=== PATIENT | female | born 1985 | race Hispanic/Latino ===

== ENCOUNTER 2019-02-05 21:07 | Emergency (ER) | payer OTHER ==
[~2019-02-05] VITALS: Ht 162.6 cm; Wt 77.1 kg
[2019-02-05 21:07] VITALS: BP 126/76
--- NOTE | 2019-02-05 21:38 | PCM.EKG ---
[facility] Test Date: 2019-02-05 Test Time: 21:29:41 Pat Name: BE SALAZAR Department: Room: Gender: F Cafe Associate: HOLDEN : 1985 Requested By: DEBORA FAIRCHILD Order Number: [id number] Reading MD: Measurements Intervals [place] Rate: 77 P: 46 NE: 146 QRS: -23 QRSD: 100 T: 43 QT: 390 QTc: 441 Interpretive Statements Normal sinus rhythm Normal ECG No previous ECG available for comparison Please click the below link to view image of tracing.
[2019-02-05 22:18] VITALS: BP 126/76
--- NOTE | 2019-02-05 23:54 | DIREP ---
PROCEDURE:CHEST 1 VIEW COMPARISON:None. INDICATIONS:cp FINDINGS: LUNGS/PLEURA:No significant pulmonary parenchymal abnormalities. No effusions. VASCULATURE:Normal. Unremarkable pulmonary vasculature. CARDIAC:Normal. No cardiac silhouette abnormality or cardiomegaly. MEDIASTINUM:Normal. No visible mass or adenopathy. BONES:Normal. No fracture or visible bony lesion. OTHER:Negative. CONCLUSION:Normal examination. Dictated by: Juan Moy M.D. on 02/05/2019 at 11:52 PM
[2019-02-06] LABS: BASOPHIL # 0.1 10^3/uL (0.0-0.1); BASOPHIL % 0.6 % (0.0-0.2); EOSINOPHIL # 0.5 10^3/uL (0.0-0.2); HEMOGLOBIN 13.4 g/dL (12.0-15.0); LYMPHOCYTES # 4.2 10^3/uL (1.0-4.8); LYMPHOCYTES % 31.7 % (24.0-44.0); MEAN CELL HGB 30.8 pg (26-34); MEAN CELL HGB CONCENTRATION 34.5 g/dL (33-37); MEAN CORP VOLUME 89.2 fL (78-100); MEAN PLATELET VOLUME 9.3 fL (7.8-11.0); MONOCYTES % 7.3 % (5.0-12.0); NEUTROPHIL # 7.4 10^3/uL (1.8-7.7); NEUTROPHILS % 56.2 % (41.0-85.0); RED CELL DISTRIBUTION WIDTH 12.4 % (11.5-14.5); WHITE BLOOD CELL 13.2 10^3/uL (4.5-11.0)
--- NOTE | 2019-02-06 00:05 | ER.PDOC ---
General Chief Complaint: Nausea,Vomiting,Diarrhea Stated Complaint: NAUSEA,CHEST PRESSURE Time seen by MD: 00:05 Source: patient Exam Limitations: no limitations History of Present Illness Timing/Duration: 4-6 hours Severity/Quality: moderate, dull, pressure Radiation: no radiation Activities at Onset: none Prior CP/Workup: No Prior Chest Pain Nitro Today/Relief: No Nitro Taken Today Aspirin Today: No Aspirin Today Associated Symptoms: denies symptoms Past Medical History Medical History: no pertinent history Surgical History: appendectomy, cholecystectomy, LMP (females 10-50): last week Social History Smoking: less than 1 pack/day Alcohol Use: occassionally Drug Use: none Constitutional: denies no symptoms reported, denies see HPI, denies chills, denies diaphoresis, denies fever, denies malaise, denies weakness, denies other EENTM: denies no symptoms reported, denies see HPI, denies eye pain, denies blurred vision, denies tearing, denies double vision, denies ear pain, denies ear discharge, denies nose pain, denies nose congestion, denies throat pain, denies throat swelling, denies mouth pain, denies mouth swelling, denies other Respiratory: denies no symptoms reported, denies see HPI, denies cough, denies orthopnea, denies shortness of breath, denies SOB with exertion, denies SOB at rest, denies stridor, denies wheezing, denies other Gastrointestinal: denies no symptoms reported, denies see HPI, denies abdomen distended, denies abdominal pain, denies blood streaked bowels, denies constipated, denies diarrhea, denies difficulty swallowing, denies nausea, denies poor appetite, denies poor fluid intake, denies rectal bleeding, denies vomiting, denies other Genitourinary: denies no symptoms reported, denies see HPI, denies burning, denies dysuria, denies discharge, denies frequency, denies flank pain, denies hematuria, denies incontinence, denies pain, denies urgency, denies other Musculoskeletal: denies no symptoms reported, denies see HPI, denies back pain, denies gout, denies joint pain, denies joint swelling, denies muscle pain, denies muscle stiffness, denies neck pain, denies other Skin: denies no symptoms reported, denies see HPI, denies change in color, denies change in hair/nails, denies dryness, denies lesions, denies lumps, denies rash, denies other Physical Exam General Appearance: No Apparent Distress, WD/WN HEENT: PERRL/EOMI, Normal ENT Inspection, TMs Normal, Pharynx Normal Neck: Non-Tender, Full Range of Motion, Supple, Normal Inspection Respiratory: chest non-tender, lungs clear, normal breath sounds, no respiratory distress, no accessory muscle use Cardiovascular: Normal Peripheral Pulses, Regular Rate, Rhythm, No Edema, No Gallop, No JVD, No Murmur Gastrointestinal: Normal Bowel Sounds, No Organomegaly, No Pulsatile Mass, Non Tender, Soft Extremities: Normal Range of Motion, Non-Tender, Normal Inspection, No Pedal Edema, No Calf Tenderness, Normal Capillary Refill 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 (02/05/19 23:37) Helicobacter Pylori (02/05/19 23:37) D-Dimer (02/05/19 23:37) Xr Chest 1v (02/05/19 23:37) Vital Signs Date Time Temp Pulse Resp B/P (MAP) Pulse Ox O2 Delivery O2 Flow Rate FiO2 02/05/19 22:18 98.2 75 16 126/76 (93) 100 Room Air 02/05/19 21:07 98.4 75 16 126/76 (93) 02/05/19 21:07 98.4 75 16 100 Room Air Progress Progress pt is stable , i have reviewed all labs with pt , will DC home with return precautions EKG/XRAY/CT/US EKG: NSR (no acute changes ) XRAY Comments: NAD Departure Time of Disposition: 01:20 Disposition: 01 HOME, SELF-CARE Impression: Primary Impression: Atypical chest pain Condition: Stable Referrals: PCP,UNKNOWN (PCP) PRIMARY CARE PROVIDER Duration or Time Spent with Pa: 20 mins DEBORA FAIRCHILD MD Feb 06, 2019 00:05
[2019-02-06 00:25] LABS: CALCIUM 9.3 mg/dL (8.4-10.5); CARBON DIOXIDE 23.6 mmol/L (20.0-32)
== END 2019-02-06 01:35 | disposition home or self-care (01) ==
LOC: ER 21:07
DX: R07.89 Other chest pain (principal); F17.210 Nicotine dependence, cigarettes, uncomplicated; Z90.49 Acquired absence of other specified parts of digestive tract; Z90.89 Acquired absence of other organs
CPT/HCPCS: 36415; 71045; 80053; 82550; 83880; 84484; 85025; 85379; 85610; 85730; 86677; 93005; 99285